=== PATIENT | female | born 2000 | race American Indian/Alaskan Native ===

== ENCOUNTER 2021-11-18 10:50 | Emergency (ER) | payer MEDICAID ==
[2021-11-18] MEDS ORDERED: KETOROLAC 10 MG TAB PO ONE (15:25)
[2021-11-18] MEDS ORDERED: CYCLOBENZAPRINE 10 MG TAB PO ONE (15:25)
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
[2021-11-18 16:05] VITALS: BP 120/60
== END 2021-11-18 16:05 | disposition home or self-care (01) ==
LOC: ED 10:50
DX: M54.50 Low back pain, unspecified (principal); V89.2XXA Person injured in unspecified motor-vehicle accident, traffic, initial encounter; Y93.89 Activity, other specified; Y92.89 Other specified places as the place of occurrence of the external cause; Y99.8 Other external cause status
CPT/HCPCS: 99282